=== PATIENT | male | born 1990 | race Caucasian/White ===

== ENCOUNTER 2017-05-09 17:27 | Emergency (ER) | payer OTHER ==
[~2017-05-09] VITALS: Ht 182.8 cm; Wt 70.3 kg
[~2017-05-09 17:27] MED LIST: ANAPROX DS550 MG PO; ATARAX25 MG PO; BACTRIM DS 8001 TA1 PO; BIAXIN500 MG PO; FLEXERIL10 MG PO; MOTRIN800 MG PO; NKHM; PREDNICOT20 MG PO; VICODIN 500 MG-1 TAB PO
[2017-05-09] MEDS ORDERED: BACTRIM 400-801 EACH PO (18:32)
== END 2017-05-09 18:36 | disposition home or self-care (01) ==
LOC: ED 17:27
DX: S61.210A Laceration without foreign body of right index finger without damage to nail, initial encounter (principal); F17.200 Nicotine dependence, unspecified, uncomplicated; Z88.0 Allergy status to penicillin; W26.8XXA Contact with other sharp object(s), not elsewhere classified, initial encounter; Y93.89 Activity, other specified; Y92.89 Other specified places as the place of occurrence of the external cause; Y99.9 Unspecified external cause status

== ENCOUNTER 2017-09-30 12:47 | Emergency (ER) | payer OTHER ==
[~2017-09-30] VITALS: Wt 65.8 kg
[~2017-09-30 12:47] MED LIST changes: +BACTRIM 400-801 EACH PO
[2017-09-30] MEDS ORDERED: NAPROSYN500 MG PO (12:59)
== END 2017-09-30 13:39 | disposition home or self-care (01) ==
LOC: ED 12:47
DX: S90.111A Contusion of right great toe without damage to nail, initial encounter (principal); R03.0 Elevated blood-pressure reading, without diagnosis of hypertension; F17.200 Nicotine dependence, unspecified, uncomplicated; Z88.0 Allergy status to penicillin; Z79.899 Other long term (current) drug therapy; W22.8XXA Striking against or struck by other objects, initial encounter; Y93.89 Activity, other specified; Y92.89 Other specified places as the place of occurrence of the external cause; Y99.9 Unspecified external cause status

== ENCOUNTER 2019-01-23 09:48 | Emergency (ER) | payer SELFPAY ==
[~2019-01-23] VITALS: Ht 180.3 cm; Wt 65.8 kg
[~2019-01-23 09:48] MED LIST changes: +NAPROSYN500 MG PO
== END 2019-01-23 11:58 | disposition home or self-care (01) ==
LOC: ED 09:48
DX: S93.402A Sprain of unspecified ligament of left ankle, initial encounter (principal); F17.200 Nicotine dependence, unspecified, uncomplicated; Z88.0 Allergy status to penicillin; X58.XXXA Exposure to other specified factors, initial encounter; Y93.01 Activity, walking, marching and hiking; Y92.89 Other specified places as the place of occurrence of the external cause; Y99.8 Other external cause status

== ENCOUNTER 2019-06-26 20:08 | Inpatient (IN) | payer OTHER ==
[~2019-06-26] VITALS: Ht 180.3 cm; Wt 71.2 kg
--- NOTE | 2019-06-26 20:10 | NUR ---
PT A&O X 3, RESP EASY, LUNGS CLEAR, ABD SOFT WITH BS X4, RED POSSIBLE BITES TO ARMS, LEGS
[2019-06-26 20:13] VITALS: BP 123/75
--- NOTE | 2019-06-26 20:19 | NUR ---
PT TO TREATMENT ROOM IN NO ACUTE DISTRESS, ASSESSMENT COMPLETE, CALL SUMNER IN REACH, PT WAITING TO BE SEEN BY
--- NOTE | 2019-06-26 20:58 | NUR ---
MD IN TO EVALUATE PT
--- NOTE | 2019-06-26 21:05 | NUR ---
THROAT SWAB AND FLU SWAB OBTAINED ORDERED,PT TOLERATED WELL CLEAN CATCH UA OBTAINED AND SENT TO LAB, CLOUDY, YELLOW URINE NOTED
--- NOTE | 2019-06-26 21:16 | NUR ---
CXR COMPLETE ORDERED, LAB WORK DRAWN AND SENT ORDERED
[2019-06-26 21:25] LABS: BASO # 0.1 10*3/uL (0.0-0.1); BASO % 0.5 % (0.0-1.0); EOS % 0.1 % (1.0-4.0); HEMATOCRIT 44.3 % (42.0-52.0); HEMOGLOBIN 15.2 g/dl (14.0-18.0); LYMPH # 1.2 10*3/uL (1.3-4.4); LYMPH % 8.4 % (27.0-41.0); MEAN CORPUSCULAR HGB 31.2 pg (27.0-31.0); MEAN CORPUSCULAR HGB CONC 34.3 g/dl (33.0-37.0); MEAN PLATELET VOLUME 8.8 fl (9.6-12.3); MONO # 1.4 10*3/uL (0.1-1.0); MONO % 9.6 % (3.0-9.0); NEUT # 11.9 10*3/uL (2.3-7.9); NEUT % 81.1 % (47.0-73.0); PLATELET COUNT AUTOMATED 299 10*3/uL (130-400); RED BLOOD COUNT 4.87 10*6/uL (4.50-5.90); RED CELL DISTRI WIDTH 13.2 % (0-14.5); WHITE BLOOD COUNT 14.6 10*3/uL (4.8-10.8)
[2019-06-26 21:37] LABS: ACT PARTIAL THROMBO TIME 31.5 SECONDS (20.0-32.1); INTERNATIONAL NORM RATIO 0.9 (2.0-3.5)
[2019-06-26 21:40] LABS: ACETAMINOPHEN (TYLENOL) < 5.0 ug/ml (10-30); ETHYL ALCOHOL < 3.0 mg/dl (<3)
[2019-06-26 21:43] LABS: ALBUMIN 3.6 gm/dl (3.1-4.5); ALKALINE PHOSPHATASE 77 U/L (45-117); BUN 8 mg/dl (7-24); CHLORIDE 99 mmol/L (98-107); CREATININE 0.95 mg/dL (0.70-1.30); LIPASE 58 U/L (73-393); POTASSIUM 3.3 mmol/L (3.5-5.1); SGOT/AST 71 IU/L (3-35); SGPT/ALT 77 U/L (12-78); SODIUM 131 mmol/L (136-145); TOTAL PROTEIN 8.2 gm/dL (6.4-8.2)
--- NOTE | 2019-06-26 21:49 | NUR ---
PT RESTING QUIETLY, WITH NO COMPLAINTS, CALL SUMNER IN REACH
[2019-06-26 21:59] LABS: BILIRUBIN NEGATIVE (NEGATIVE); BLOOD NEGATIVE (NEGATIVE); CLARITY CLEAR (CLEAR); COLOR YELLOW (YELLOW); GLUCOSE NEGATIVE (NEGATIVE); KETONE TRACE (NEGATIVE); LEUKO ESTERASE NEGATIVE (NEGATIVE); NITRITE NEGATIVE (NEGATIVE); UROBILINOGEN 0.2 E.U./dl (0.2-1.0)
[2019-06-26 22:06] VITALS: BP 124/76
[2019-06-26 22:07] LABS: BACTERIA TRACE; EPITHELIAL CELLS 0-2; URINE AMPHETAMINES < 1000 (1000ng/ml); URINE BARBITURATES < 200 (200ng/ml); URINE BENZODIAZEPINES < 200 (200ng/ml); URINE CANNABINOIDS (THC) < 50 (50ng/ml); URINE COCAINE < 300 (300ng/ml); URINE METHADONE < 300 (300ng/ml); URINE OPIATES < 300 (300ng/ml)
[2019-06-26 22:09] LABS: URINE PHENCYCLIDINE < 25 (25ng/ml)
--- NOTE | 2019-06-26 23:44 | NUR ---
MD IN TO DISCUSS TEST RESULTS WITH PT AND DISPOSITION
[2019-06-26 23:59] VITALS: BP 118/73
--- NOTE | 2019-06-27 00:07 | NUR ---
ADMITTING MD IN TO EVALUATE PT
[2019-06-27 00:20] VITALS: BP 104/63
--- NOTE | 2019-06-27 00:20 | NUR ---
PT ADMITTED TO EAST VIA WHEELCHAIR IN NO DISTRESS, RESP EASY, SALINE LOCK PATENT WITH NO REDNESS OR SWELLING. BELONGINGS WITH PT
--- NOTE | 2019-06-27 03:03 | NUR ---
MESSAGE LEFT WITH ANSWERING SERVICE REGARDING CONSULT ORDER FOR DR. GLOVER.
[2019-06-27 08:00] VITALS: BP 115/64
[2019-06-27 12:00] VITALS: BP 110/70
[2019-06-27 16:00] VITALS: BP 112/69
[2019-06-27 20:00] VITALS: BP 112/72
[2019-06-28] VITALS: BP 108/67
--- NOTE | 2019-06-28 03:39 | NUR ---
DR. ALICEA NOTIFIED OF CRITICAL BLOOD CULTURE RESULT.
[2019-06-28 04:22] LABS: BASO # 0.1 10*3/uL (0.0-0.1); EOS # 0.2 10*3/uL (0.0-0.4); EOS % 2.3 % (1.0-4.0); HEMOGLOBIN 14.2 g/dl (14.0-18.0); LYMPH # 2.2 10*3/uL (1.3-4.4); LYMPH % 23.7 % (27.0-41.0); MEAN CELL VOLUME 93.5 fl (80.0-94.0); MEAN CORPUSCULAR HGB 31.6 pg (27.0-31.0); MEAN CORPUSCULAR HGB CONC 33.8 g/dl (33.0-37.0); MEAN PLATELET VOLUME 8.6 fl (9.6-12.3); MONO # 1.1 10*3/uL (0.1-1.0); MONO % 11.9 % (3.0-9.0); NEUT # 5.6 10*3/uL (2.3-7.9); NEUT % 60.9 % (47.0-73.0); PLATELET COUNT AUTOMATED 312 10*3/uL (130-400); RED BLOOD COUNT 4.49 10*6/uL (4.50-5.90); RED CELL DISTRI WIDTH 13.4 % (0-14.5); WHITE BLOOD COUNT 9.3 10*3/uL (4.8-10.8)
[2019-06-28 04:33] LABS: ACT PARTIAL THROMBO TIME 29.5 SECONDS (20.0-32.1); INTERNATIONAL NORM RATIO 0.9 (2.0-3.5)
[2019-06-28 04:37] LABS: ALKALINE PHOSPHATASE 63 U/L (45-117); BUN 6 mg/dl (7-24); CHLORIDE 109 mmol/L (98-107); CHOLESTEROL 137 mg/dL (<200); CREATININE 0.76 mg/dL (0.70-1.30); HDL CHOLESTEROL 36 mg/dl (40-60); LDL CHOLESTEROL 79 mg/dL (9-159); PHOSPHOROUS 3.5 mg/dL (2.5-4.9); POTASSIUM 3.8 mmol/L (3.5-5.1); SGOT/AST 29 IU/L (3-35); SGPT/ALT 54 U/L (12-78); SODIUM 140 mmol/L (136-145); TOTAL PROTEIN 7.2 gm/dL (6.4-8.2); TRIGLYCERIDES 109 mg/dl (<150); VLDL CHOLESTEROL 22 mg/dL (6-40)
[2019-06-28 04:39] LABS: FREE T4 1.15 ng/dl (0.76-1.46)
[2019-06-28 07:23] LABS: VITAMIN D, 25-HYDROXY 11.3 ng/mL (30-100)
[2019-06-28 08:00] VITALS: BP 104/56
--- NOTE | 2019-06-28 08:00 | NUR ---
Patient resting quietly with no c/o discomfort. Respirations easy and regular. Vital signs stable. No overt distress. ELEN MTZ
--- NOTE | 2019-06-28 08:03 | NUR ---
24 HR chart check completed.
[2019-06-28 12:00] VITALS: BP 101/54
--- NOTE | 2019-06-28 12:00 | NUR ---
Patient resting quietly with no c/o discomfort. Respirations easy and regular. Vital signs stable. No overt distress. ELEN MTZ
[2019-06-28 16:00] VITALS: BP 112/86
--- NOTE | 2019-06-28 16:00 | NUR ---
Patient resting quietly with no c/o discomfort. Respirations easy and regular. Vital signs stable. No overt distress. ELEN MTZ
--- NOTE | 2019-06-28 19:35 | NUR ---
24 HOUR CHART CHECK COMPLETE
[2019-06-28 20:00] VITALS: BP 108/80
--- NOTE | 2019-06-28 20:20 | NUR ---
PATIENT ASSESSMENT COMPLETED AT THIS TIME WITHOUT INCIDENT. PATIENT DENIES ANY CHEST PAIN OR SHORTNESS OF BREATH AT THIS TIME, IS PLAYING ONLINE GAME ON HIS PHONE. IV INFUSING WITHOUT INCIDENT. CALL LIGHT WITHIN REACH, WILL CONTINUE TO MONITOR.
[2019-06-29] VITALS: BP 102/70
--- NOTE | 2019-06-29 | NUR ---
PATIENT RESTING IN A POSITION OF COMFORT IN BED, CONTINUES TO PLAY INTERACTIVE VIDEO GAME ON HIS PHONE. DENIES ANY DISTRESS OR NEEDS AT THIS TIME. CALL LIGHT WITHIN REACH WILL CONTINUE TO MONITOR.
[2019-06-29 05:53] LABS: BUN 7 mg/dl (7-24); CHLORIDE 107 mmol/L (98-107); SODIUM 139 mmol/L (136-145)
[2019-06-29 05:56] LABS: VANCOMYCIN TROUGH 14.3 ug/mL (10-20)
[2019-06-29 06:03] LABS: HEMATOCRIT 40.8 % (42.0-52.0); HEMOGLOBIN 13.7 g/dl (14.0-18.0); MEAN CELL VOLUME 94.2 fl (80.0-94.0); MEAN CORPUSCULAR HGB 31.6 pg (27.0-31.0); MEAN CORPUSCULAR HGB CONC 33.6 g/dl (33.0-37.0); MEAN PLATELET VOLUME 8.9 fl (9.6-12.3); PLATELET COUNT AUTOMATED 373 10*3/uL (130-400); RED BLOOD COUNT 4.33 10*6/uL (4.50-5.90); RED CELL DISTRI WIDTH 13.3 % (0-14.5); WHITE BLOOD COUNT 9.2 10*3/uL (4.8-10.8)
[2019-06-29 06:46] LABS: ATYPICAL LYMPHS 1 % (0-0); BASOPHILS 2 % (0-1); PLASMA CELL 2 % (0-0); PLATELET SUFFICIENCY NORMAL (NORMAL); TOTAL CELLS COUNTED 100 #CELLS
[2019-06-29 08:00] VITALS: BP 103/73
--- NOTE | 2019-06-29 09:52 | NUR ---
Shift chart check completed.
--- NOTE | 2019-06-29 10:54 | NUR ---
Patient resting quietly with no c/o discomfort. Respirations easy and regular. Vital signs stable. No overt distress. HISSOM,TARIQ
[2019-06-29 12:00] VITALS: BP 109/73
--- NOTE | 2019-06-29 12:36 | NUR ---
SPOKE WITH . STATED PATIENT WAS ABLE TO GO HOME TODAY FROM HER STANDPOINT. FOLLOW UP WITH THE [facility]IDENT [facility] DUE TO PENDING TEST RESULTS. ALSO TO CALL THE REST OF THE TEAM AND LET THEM KNOW
--- NOTE | 2019-06-29 12:37 | NUR ---
SPOKE WITH REGARDING DR. BRITO DISCHARGE RECCOMEDATIONS
--- NOTE | 2019-06-29 13:23 | NUR ---
IV STARTED RIGHT ARM #22, ON SECOND ATTEMPT. GOOD BLOOD RETURN. PT TOLERATED FAIR
--- NOTE | 2019-06-29 14:39 | NUR ---
SPOKE WITH DR. JEFFERY REGARDING NEW CONSULT. STATED TO ORDER A CBC,ESR,CRP,URIC ACID, GOVIND AND AN MRI
[2019-06-29 16:00] VITALS: BP 111/66
[2019-06-29 16:05] LABS: HEMATOCRIT 45.3 % (42.0-52.0); HEMOGLOBIN 15.1 g/dl (14.0-18.0); MEAN CORPUSCULAR HGB 31.3 pg (27.0-31.0); MEAN CORPUSCULAR HGB CONC 33.3 g/dl (33.0-37.0); MEAN PLATELET VOLUME 8.5 fl (9.6-12.3); PLATELET COUNT AUTOMATED 404 10*3/uL (130-400); RED BLOOD COUNT 4.82 10*6/uL (4.50-5.90); RED CELL DISTRI WIDTH 13.2 % (0-14.5); WHITE BLOOD COUNT 9.8 10*3/uL (4.8-10.8)
[2019-06-29 16:16] LABS: URIC ACID 3.9 mg/dL (3.5-7.2)
[2019-06-29 16:28] LABS: BASOPHILS 2 % (0-1); TOTAL CELLS COUNTED 100 #CELLS
[2019-06-29 16:29] LABS: PLATELET SUFFICIENCY HIGH (NORMAL)
--- NOTE | 2019-06-29 18:23 | NUR ---
Patient resting quietly with no c/o discomfort. Respirations easy and regular. Vital signs stable. No overt distress. HISSOM,TARIQ
[2019-06-29 20:00] VITALS: BP 110/63
[2019-06-30] VITALS: BP 112/76
--- NOTE | 2019-06-30 00:45 | NUR ---
PATIENT RESTING IN BED IN A POSITION OF COMFORT. RESPIRATIONS EASY AND NONLABORED AT THIS TIME. CALL LIGHT WITHIN REACH, WILL CONTINUE TO MONITOR
--- NOTE | 2019-06-30 04:25 | NUR ---
PATIENT RESTING IN A POSITION OF COMFORT IN BED, RESPIRATIONS EASY AND NONLABORED AT THIS TIME. CALL LIGHT WITHIN REACH. WILL CONTINUE TO MONITOR.
[2019-06-30 06:36] LABS: HEMATOCRIT 43.3 % (42.0-52.0); HEMOGLOBIN 14.2 g/dl (14.0-18.0); MEAN CELL VOLUME 92.3 fl (80.0-94.0); MEAN CORPUSCULAR HGB 30.3 pg (27.0-31.0); MEAN CORPUSCULAR HGB CONC 32.8 g/dl (33.0-37.0); MEAN PLATELET VOLUME 8.6 fl (9.6-12.3); PLATELET COUNT AUTOMATED 418 10*3/uL (130-400); RED BLOOD COUNT 4.69 10*6/uL (4.50-5.90); RED CELL DISTRI WIDTH 13.3 % (0-14.5); WHITE BLOOD COUNT 7.5 10*3/uL (4.8-10.8)
[2019-06-30 06:47] LABS: BUN 7 mg/dl (7-24); CHLORIDE 107 mmol/L (98-107); CREATININE 0.88 mg/dL (0.70-1.30); POTASSIUM 3.4 mmol/L (3.5-5.1); SODIUM 140 mmol/L (136-145)
[2019-06-30 07:41] LABS: ATYPICAL LYMPHS 4 % (0-0); BASOPHILS 1 % (0-1); PLATELET SUFFICIENCY HIGH (NORMAL); TOTAL CELLS COUNTED 100 #CELLS
[2019-06-30 08:00] VITALS: BP 97/62
--- NOTE | 2019-06-30 08:38 | NUR ---
PT TAKEN TO MRI VIA WHEELCHAIR
--- NOTE | 2019-06-30 10:00 | NUR ---
PT BACK FROM MRI. RESTING IN BED. VOICES NO CONCERNS.
--- NOTE | 2019-06-30 10:17 | NUR ---
Shift chart check completed.
--- NOTE | 2019-06-30 10:30 | NUR ---
Program Clinician in to talk to patient. Patient states lives at home alone with his family checking in on him. There are 4 steps in the home. Physician: no family physician [facility]acy: [facility] Home health services: none Patient's level of ADLs: INDEPENDENT Patient has working utilities: yes DME: none Follow-up physician's appointment after d/c: will be made by the hospitalist nurse director upon discharge Does patient want to access PORTAL?: no Discharge plan discussed with patient. He lives at home alone with his family checking in on him. He is independent in his ADLs and ambulation. Discussed home health care services and he denies any home needs at this time. When medically stable he will be discharged to home. His uncle will provide transportation on discharge. SONYA TRAN
--- NOTE | 2019-06-30 11:18 | NUR ---
Patient resting quietly with no c/o discomfort. Respirations easy and regular. Vital signs stable. No overt distress. HISSOM,TARIQ
[2019-06-30 12:00] VITALS: BP 107/66
[2019-06-30] MEDS ORDERED: SUPRAX PO (15:22)
--- NOTE | 2019-06-30 15:29 | NUR ---
SPOKE WITH DR HOOD OFFICE REGARDING MRI RESULTS. WAITING ON A CALL BACK
--- NOTE | 2019-06-30 16:06 | NUR ---
SPOKE WITH DR SRINIVASAN REGARDING DR HOOD PLAN OF CARE FOR THE PATIENT. NO NEW ORDERS RECIEVED AT THIS TIME
--- NOTE | 2019-06-30 16:31 | NUR ---
Discharge instructions reviewed with patient/family. Patient receptive and verbalizes understanding. Follow-up care arranged. Written instructions given to patient/family. TARIQ VELA
--- NOTE | 2019-06-30 16:31 | NUR ---
The Discharge Plan/Instructions have been completed.
--- NOTE | 2019-07-01 07:50 | NUR ---
CALLED WITH +BLOOD CULTURE. DISCUSSED WITH DR BAINS. IT IS LIKELY A CONTAMINATE. THERE WILL NOT BE A SENSITIVITY ACCORDING TO MICRO TECH.
== END 2019-06-30 16:31 | disposition home or self-care (01) | DRG 720 ==
LOC: ED 20:08 → 5E 06-27 00:03 → EDHOLD 06-27 00:03 → 5E 06-27 00:12
PROVIDERS: Emergency Medicine Emergency Medical Services; Internal Medicine; Orthopaedic Surgery; ADMIT Internal Medicine
DX: A41.9 Sepsis, unspecified organism (principal); E87.1 Hypo-osmolality and hyponatremia; L03.818 Cellulitis of other sites; M00.9 Pyogenic arthritis, unspecified; W57.XXXA Bitten or stung by nonvenomous insect and other nonvenomous arthropods, initial encounter; B27.90 Infectious mononucleosis, unspecified without complication; B27.99 Infectious mononucleosis, unspecified with other complication; E87.6 Hypokalemia; F10.10 Alcohol abuse, uncomplicated; R73.9 Hyperglycemia, unspecified; F17.210 Nicotine dependence, cigarettes, uncomplicated; M65.869 Other synovitis and tenosynovitis, unspecified lower leg; Z71.6 Tobacco abuse counseling; Z88.0 Allergy status to penicillin; Z81.8 Family history of other mental and behavioral disorders; Y93.89 Activity, other specified; Y92.89 Other specified places as the place of occurrence of the external cause; Y99.8 Other external cause status

== ENCOUNTER 2021-04-05 19:57 | Emergency (ER) | payer OTHER ==
[~2021-04-05] VITALS: Ht 182.8 cm; Wt 72.6 kg
[~2021-04-05 19:57] MED LIST changes: +SUPRAX PO
[2021-04-06] MEDS ORDERED: DOXYCYCLINE100 M3 PO (08:44)
== END 2021-04-05 21:05 | disposition left against medical advice (07) ==
LOC: ED 19:57
DX: S91.112A Laceration without foreign body of left great toe without damage to nail, initial encounter (principal); F17.210 Nicotine dependence, cigarettes, uncomplicated; Z88.0 Allergy status to penicillin; W22.8XXA Striking against or struck by other objects, initial encounter; Y93.H2 Activity, gardening and landscaping; Y92.89 Other specified places as the place of occurrence of the external cause; Y99.8 Other external cause status

== ENCOUNTER 2021-04-06 07:44 | Emergency (ER) | payer OTHER ==
[~2021-04-06] VITALS: Ht 180.3 cm; Wt 68.0 kg
[2021-04-06] MEDS ORDERED: DOXYCYCLINE100 M3 PO (08:44)
== END 2021-04-06 08:46 | disposition home or self-care (01) ==
LOC: ED 07:44
DX: S91.112D Laceration without foreign body of left great toe without damage to nail, subsequent encounter (principal); Z79.899 Other long term (current) drug therapy; Z88.0 Allergy status to penicillin; W45.8XXD Other foreign body or object entering through skin, subsequent encounter

== ENCOUNTER 2021-08-11 16:42 | Emergency (ER) | payer OTHER ==
[~2021-08-11] VITALS: Ht 180.3 cm; Wt 72.6 kg
[~2021-08-11 16:42] MED LIST changes: +DOXYCYCLINE100 M3 PO
[2021-08-11] MEDS ORDERED: IBUPROFEN600 MG PO (18:48)
== END 2021-08-11 19:04 | disposition home or self-care (01) ==
LOC: ED 16:42
DX: S05.11XA Contusion of eyeball and orbital tissues, right eye, initial encounter (principal); F17.210 Nicotine dependence, cigarettes, uncomplicated; Z88.0 Allergy status to penicillin; W22.8XXA Striking against or struck by other objects, initial encounter; Y93.89 Activity, other specified; Y92.89 Other specified places as the place of occurrence of the external cause; Y99.8 Other external cause status

== ENCOUNTER 2025-07-30 08:54 | Emergency (ER) | payer OTHER ==
[~2025-07-30] VITALS: Ht 180.3 cm; Wt 76.2 kg
[~2025-07-30 08:54] MED LIST changes: +IBUPROFEN600 MG PO
[2025-07-30 10:12] LABS: BASO # 0.1 10*3/uL (0.0-0.1); BASO % 1.0 % (0.0-1.0); EOS # 0.1 10*3/uL (0.0-0.4); EOS % 0.7 % (1.0-4.0); MEAN CELL VOLUME 92.4 fl (80.0-94.0); MEAN CORPUSCULAR HGB 30.7 pg (27.0-31.0); MEAN PLATELET VOLUME 8.3 fl (9.6-12.3); MONO # 0.4 10*3/uL (0.1-1.0); MONO % 5.1 % (3.0-9.0); NEUT # 4.6 10*3/uL (2.3-7.9); NEUT % 56.1 % (47.0-73.0); NUCLEATED RED BLOOD CELL 0.0 % (0.0-0.0); NUCLEATED RED BLOOD CELL 0.0 10*3/uL (0.0-0.0); PLATELET COUNT AUTOMATED 345 10*3/uL (130-400); RED CELL DISTRI WIDTH 13.9 % (0-14.5)
[2025-07-30 10:35] LABS: BUN 11 mg/dl (9-23); SGPT/ALT 22 U/L (5-49)
[2025-08-01] MEDS ORDERED: VIBRAMYCIN100 MG PO (12:30)
== END 2025-07-30 12:29 | disposition home or self-care (01) ==
LOC: ED 08:54
PROVIDERS: Emergency Medicine
DX: A69.20 Lyme disease, unspecified (principal); R20.2 Paresthesia of skin; R20.0 Anesthesia of skin; F17.210 Nicotine dependence, cigarettes, uncomplicated; Z88.0 Allergy status to penicillin